=== PATIENT | male | born 1950 | race Caucasian/White ===

== ENCOUNTER → 2017-06-03 | Outpatient (CLI) | payer OTHER | LOC: FIMAGING 13:38 | PROVIDERS: ATTEND Physician Assistant Medical | DX: N20.0 Calculus of kidney (principal) ==

== ENCOUNTER → 2017-06-10 | Outpatient (CLI) | payer OTHER | LOC: CIMAGING 11:20 | PROVIDERS: ATTEND Physician Assistant Medical | DX: N20.0 Calculus of kidney (principal); K80.20 Calculus of gallbladder without cholecystitis without obstruction; K59.00 Constipation, unspecified | CPT/HCPCS: 72192-PO; 74150-PO ==

== ENCOUNTER → 2017-06-27 | Outpatient (CLI) | payer OTHER | LOC: FLAB 08:34 | PROVIDERS: ATTEND Physician Assistant Medical | DX: N20.0 Calculus of kidney (principal) ==

== ENCOUNTER 2017-08-03 08:44 | Day surgery (SDC) | payer OTHER ==
[~2017-08-03 08:44] MED LIST: ALTEPLASE 2 MG VIAL IVP PRN; FLUMAZENIL 0.5 MG/5 ML MDV IVP PRN; GLUCAGON HCL 1 MG VIAL IVP PRN; HEPARIN 10,000 UNIT/10 ML MDV (1,000 UNIT/ML) IVP PRN; MEPERIDINE 25 MG/ML SYR IVP PRN; MIDAZOLAM 2 MG/2 ML VIAL IVP PRN; NALOXONE HCL 0.4 MG/ML INJ IVP PRN; NS 1,000 ML IV SCH; PROTAMINE SULFATE 50 MG/5 ML VIAL IVP PRN; fentaNYL 100 MCG/2 ML INJ IVP PRN
[2017-08-03] MEDS ORDERED: DEXMEDETOMIDINE HCL 200 MCG in NS 50 ML IV ONE (09:00)
[2017-08-03] MEDS ORDERED: FLUMAZENIL 0.5 MG/5 ML MDV IVP ONE (09:02)
[2017-08-03] MEDS ORDERED: fentaNYL 100 MCG/2 ML INJ ONE ×2 (09:02→10:56)
[2017-08-03] MEDS ORDERED: MIDAZOLAM 2 MG/2 ML VIAL ONE ×2 (09:02→10:56)
[2017-08-03] MEDS ORDERED: NALOXONE HCL 0.4 MG/ML INJ ONE (09:02)
--- NOTE | 2017-08-03 09:36 | PDGENHP ---
History & Physical Chief Complaint: STAGHORN CALCULUS History of Present Illness: LARGE STAGHORN CALCULUS WITH OBSTRUCTION. Pertinent Past, Social, Family History: SINUS SURGERY, L FEMUR IMPLANTS, L ARM SCREW Relevant Physical Exam: ALERT, AWAKE, NO DISTRESS Cardiorespiratory Assessment: RRR, CTA
--- NOTE | 2017-08-03 09:38 | PDPROPOC ---
Sedation Plan of Care Sedation Plan of Care: vital signs stable, mental status noted, patient educated of risks, benefits, alternatives, patient can tolerate sedation ASA Classification: ASA 2 Planned drugs: fentanyl, midazolam Mallampati Score: Class 2 Mallampati Reference Image: Patient passed 3-3-2 rule?: Yes
[2017-08-03] MEDS ORDERED: IOPAMIDOL (ISOVUE-300) 100 ML BTL ONE (10:16)
[2017-08-03] MEDS ORDERED: LIDOCAINE 1% 300 MG/30 ML SDV ONE (10:16)
[2017-08-03] MEDS ORDERED: ONDANSETRON 4 MG/2 ML VIAL IVP PRN (11:26)
[2017-08-03] MEDS ORDERED: ACETAMINOPHEN 325 MG TAB PO PRN (11:26)
--- NOTE | 2017-08-03 11:29 | PDRADPN ---
Radiology Procedure Note Date of Procedure: 08/03/17 Radiologist: Yasemin Reis Anesthesia: IV Sedation Pre-op Diagnosis: RT RENAL STONE Post-op Diagnosis: SAME Indication: PRE-SURGICAL ACCESS Procedure: PERC NEPHROSTOMY PLACEMENT Finding(s): ACCESS TO UPPER POLE OBTAINED. Inf/Abcess present in the surg proc area at time of surgery?: No Complications: NONE
[2017-08-03] MEDS ORDERED: ACETAMINOPHEN 325 MG TAB ONE (11:46)
[2017-08-03 13:04] VITALS: BP 127/86
== END 2017-08-03 12:50 | disposition home or self-care (01) ==
LOC: FIMAGING 08:44
PROVIDERS: ATTEND Specialist
PROC: 0T9130Z Drainage of Left Kidney with Drainage Device, Percutaneous Approach (ICD-10-PCS; principal; 2017-08-03 11:30)
DX: N20.0 Calculus of kidney (principal)
CPT/HCPCS: 50432; 99152; C1729; C1769; J0696; J2250; J2310; J3010; Q9967

== ENCOUNTER 2017-08-04 05:24 | Observation (INO) | payer OTHER ==
[2017-08-04] MEDS ORDERED: LIDOCAINE 1% 2 ML INJ ID PRN (06:08)
[2017-08-04] MEDS ORDERED: LR 1,000 ML IV ONE (06:08)
[2017-08-04] MEDS ORDERED: levOFLOXACIN 500 MG/DEXTROSE 100 ML IV ONE (06:08)
--- NOTE | 2017-08-04 06:08 | PDANEPAE ---
ANE History of Present Illness 66 yo male with L Staghorn calculus for perc nephrolithotomy. 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 mild central apnea in past - Neurologic History Hx Cerebrovascular Accident: No Hx Seizures: No Hx Dementia: No Neurologic History Comment: chronic fatigue/ neurological condition- hasn't seen neurology in a few years - Endocrine History Hx Diabetes: Yes Hypothyroid: No Obesity: no Endocrine History Comment: type 2- on metformin - Renal History Hx Renal Disorders: Yes Renal History Comment: kidney stones. mild bph - Liver History Hx Hepatic Disorders: No Hepatic History Comment: Hepatitis A 's - Neurological & Psychiatric Hx Hx Neurological and Psychiatric Disorders: No - Cancer History Hx Cancer: No - Congenital Disorder History Hx Congenital Disorders: No Congenital History Comment: aphantasia - GI History Hx Gastrointestinal Disorders: Yes Gastrointestinal History Comment: hx of chronic constipation- used probiotic and hasn't had problem - Other Health History Other Health History: psoriasis / psoriatic arthritis. wears glasses. partial upper and lower - Chronic Pain History Chronic Pain: Yes (chronic muscle aches and joint pain) - Surgical History Prior Surgeries: stone removal with melouk. sinus surgery in the 70's. broken femur just below hip repaired. ANE Review of Systems Review of Systems: - Exercise capacity METS (RN): 4 METS ANE Patient History - Allergies Allergies/Adverse Reactions: methotrexate [Methotrexate] Allergy (Verified 07/29/17 14:14) Elevated liver enzymes modafinil [From Provigil] Allergy (Verified 07/29/17 14:14) Rapid HR, High BS, high B/P, body aches, headache - Home Medications Home Medications: metFORMIN HCL [Glucophage 500 mg (*)] 500 mg PO TIDMEAL 10/23/15 [Last Taken ] Acetaminophen [Tylenol 325mg (*)] 325 mg PO DAILY PRN 07/14/17 [Last Taken 07/28] Cholecalciferol Vit D3 [Vitamin D3 (*)] 1,000 units PO DAILY 07/14/17 [Last Taken 07/28/17] Fluticasone Nasal [Flonase Nasal [place]] 1 sprays NASAL DAILY 07/14/17 [Last Taken 08/02/17] Ibuprofen [Motrin (*)] 200 mg PO DAILY PRN 07/14/17 [Last Taken 07/28/17] Ixekizumab [Taltz Syringe] 80 mg SQ Q14D 07/14/17 [Last Taken 08/02/17] Multivitamins [Multivitamin (*)] 1 each PO DAILY 07/14/17 [Last Taken 07/28/17] Aspirin 81mg (*) PRN 07/29/17 [Last Taken 07/27/17] Naproxen Sodium [Aleve] 220 mg PO PRN 07/29/17 [Last Taken 07/27/17] - Smoking Hx Smoking Status: Former smoker - Family Anes Hx Family Hx Anesthesia Complications: none ANE Labs/Vital Signs - Vital Signs Height: 180.34 cm Weight: 74.843 kg ANE Physical Exam - ASA Status ASA Status: III ANE Anesthesia Plan Anesthesia Plan: general endotracheal anesthesia
[2017-08-04] MEDS ORDERED: MIDAZOLAM 2 MG/2 ML VIAL IVP ONE (07:00)
[2017-08-04] MEDS ORDERED: DEXAMETHASONE 4 MG/ML VIAL ONE (07:17)
[2017-08-04] MEDS ORDERED: MINERAL OIL 10 ML VIAL ONE (07:17)
[2017-08-04] MEDS ORDERED: ROCURONIUM 100 MG/10 ML VIAL ONE (07:17)
[2017-08-04] MEDS ORDERED: LIDOCAINE 2% 5 ML SDV ONE (07:17)
[2017-08-04] MEDS ORDERED: IOPAMIDOL (ISOVUE-300) 100 ML BTL ONE ×2 (07:18→10:01)
[2017-08-04] MEDS ORDERED: PROPOFOL/EMULSION 500 MG/50 ML BOTTLE IV ONE (07:18)
[2017-08-04] MEDS ORDERED: fentaNYL 100 MCG/2 ML INJ ONE ×2 (07:18→10:16)
[2017-08-04] MEDS ORDERED: DIAZEPAM 5 MG/ML 1 ML SYR ONE (07:25)
--- NOTE | 2017-08-04 07:31 | PDHPUP ---
History & Physical Update H&P update statement: This history and physical update is based on an assessment of the patient which was completed after admission or registration (within 24 hours), but prior to the surgery/procedure. H&P update: no change in patient's condition since H&P completed
[2017-08-04] MEDS ORDERED: epHEDrine SULFATE 10 MG/ML SYR ONE ×2 (07:59→09:26)
--- NOTE | 2017-08-04 09:10 | PDRADPN ---
Radiology Procedure Note Date of Procedure: 08/04/17 Radiologist: Moises Liriano Anesthesiologist: zavaleta Anesthesia: GET(General Endotracheal) Pre-op Diagnosis: nephrolithiasis Post-op Diagnosis: same Indication: fac access for PCNL Procedure: left PCN tract dilation Finding(s): 10F PCN exchanged for 30F Amplatz sheath over wire. good vis of stone for PCNL Inf/Abcess present in the surg proc area at time of surgery?: No EBL: Minimal Complications: none
[2017-08-04] MEDS ORDERED: IOPAMIDOL (ISOVUE-300) 150 ML BTL ONE (09:25)
[2017-08-04] MEDS ORDERED: KETOROLAC 30 MG/1 ML SDV ONE (09:41)
[2017-08-04] MEDS ORDERED: GLYCOPYRROLATE 0.2 MG/1 ML VIAL ONE (09:42)
[2017-08-04] MEDS ORDERED: NEOSTIGMINE METHYLSULFATE 10 MG/10 ML MDV ONE (09:42)
--- NOTE | 2017-08-04 10:05 | POSTOPPROG ---
Post Op Note Date of Operation: 08/04/17 Surgeon: Lee Lopez (# [id number]) Anesthesia: GET(General Endotracheal) Pre-op Diagnosis: > 2 cm volume left nephrolithiasis Post-op Diagnosis: > 2 cm volume left nephrolithiasis Procedure: Cysto, left RGP, ballon occlusion catheter, Left PCNL Findings: See op note Inf/Abcess present in the surg proc area at time of surgery?: No EBL: 50-100 (100 cc) Complications: None Drains: Nephrostomy (left 14 Fr.) Specimen(s): Left renal calculus fragments
[2017-08-04] MEDS ORDERED: HYDROmorphone HCL/NS 0.5 MG/ML SYR IVP PRN (10:08)
[2017-08-04] MEDS ORDERED: LIDOCAINE 2% JELLY 5 ML TUBE TP PRN (10:08)
[2017-08-04] MEDS ORDERED: ONDANSETRON 4 MG/2 ML VIAL IVP PRN ×2 (10:08→10:11)
[2017-08-04] MEDS ORDERED: PROMETHAZINE HCL 25 MG/ML INJ IVP PRN (10:08)
[2017-08-04] MEDS ORDERED: HYDROCODONE/APAP 5/325 TAB PO PRN (10:11)
[2017-08-04] MEDS ORDERED: NALOXONE HCL 0.4 MG/ML INJ IVP PRN (10:11)
[2017-08-04] MEDS ORDERED: ALBUTEROL 3 ML DEYVIAL IH PRN (10:11)
[2017-08-04] MEDS ORDERED: LR 500 ML IV PRN (10:11)
[2017-08-04] MEDS ORDERED: D50W 25 GM/50 ML SYR IVP PRN (10:11)
[2017-08-04] MEDS ORDERED: ACETAMINOPHEN 500 MG TAB PO PRN (10:11)
--- NOTE | 2017-08-04 10:13 | POSTANESTH ---
Post Anesthetic Evaluation Cardiovascular Status: Normal, Stable Respiratory Status: Normal, Stable Level of Consciousness/Mental Status: Can Participate in Eval, Mildly Sleepy, Arousable Pain Control: Adequate, Prn Tx Ordered Nausea/Vomiting Control: Adequate, Prn Tx Ordered Complications Possibly Related to Anesthesia: None Noted
[2017-08-04] MEDS ORDERED: D5W 1/2 NS 1,000 ML IV SCH (10:15)
[2017-08-04] MEDS: fentaNYL 100 MCG/2 ML INJ IVP PRN ×4 (10:19→11:08)
[2017-08-04] MEDS ORDERED: HYDROCODONE/APAP 5/325 TAB ONE (11:09)
--- NOTE | 2017-08-04 12:03 | GOP ---
[f rep st] OPERATIVE REPORT DATE OF OPERATION: 08/04/2017 SURGEON: Lee Lopez MD ANESTHESIA: General endotracheal. PREOPERATIVE DIAGNOSIS: Large-volume left nephrolithiasis, greater than 2 cm. POSTOPERATIVE DIAGNOSIS: Large-volume left nephrolithiasis, greater than 2 cm. PROCEDURE PERFORMED: 1. Cystourethroscopy, left retrograde pyelography. 2. Retrograde left ureteral balloon occlusion catheter placement. 3. Left percutaneous nephrostolithotomy (greater than 2 cm) with fluoroscopic guidance less than 1 hour. 4. Left nephrostomy tube placement. FINDINGS: Long narrow calculus within an upper pole infundibulum that was treated as mentioned in the body of the operative report. There was slightly more bleeding from the dilated nephrostomy tract than usual, but this did not hinder performance of the operation. SPECIMENS: Left renal calculus fragments. ESTIMATED BLOOD LOSS: Approximately 100 cc. INDICATIONS: This gentleman was found to have large-volume left nephrolithiasis that was deemed to be too large for extracorporeal shockwave lithotripsy nor retrograde ureterorenoscopy. Percutaneous nephrostolithotomy was recommended. The patient underwent left-sided nephrostomy tube placement in Interventional [facility]iology yesterday in preparation for today's surgery. The indications for the procedures as well as potential risks and complications were discussed with the patient preoperatively. He appeared to understand, his questions were answered, and he wished to proceed. Written informed surgical consent was thereafter obtained. DESCRIPTION OF PROCEDURE: The patient was brought to the operating room and administered general endotracheal anesthesia. He was carefully placed in the dorsal lithotomy position on the cystoscopic table. The genital area was sterilely prepped with Betadine scrub and paint, then draped in usual sterile fashion. A 22-Estonian sheath and 30-degree cystoscopic lens were then used to perform cystourethroscopy. The anterior urethra was unremarkable. The posterior urethra revealed mild BPH. Examination of the bladder revealed no areas of abnormal erythema, tumors, nor foreign bodies. Ureteral orifices were normal in regard to shape and position along the trigone. A 5-Estonian open-ended ureteral catheter was used to perform retrograde pyelography on the left side using C-arm fluoroscopy. This revealed no ureteral filling defects nor other abnormalities of the ureter. The renal pelvis was normal appearing. There appeared to be a filling defect in an upper pole infundibulum that was consistent with the calculus seen on preoperative imaging. The nephrostomy tube appeared to be located within the upper pole calyx associated with this long and narrow calculus in the upper pole infundibulum. I then advanced a superstiff Amplatz guidewire through the ureteral catheter and placed it so that the proximal tip was within the renal collecting system as noted fluoroscopically. The 5-Estonian open-ended ureteral catheter and cystoscope were then removed while keeping the guidewire in place. Under active fluoroscopic guidance, a balloon occlusion catheter was placed over the guidewire and positioned so that the balloon was just distal to the ureteropelvic junction. The balloon was inflated at this location. A 16- Estonian silastic Alvarado catheter was inserted alongside the balloon occlusion catheter. The Alvarado catheter was secured to the balloon occlusion catheter with Steri-Strips. This completed the cystoscopic portion of the procedure. The patient was then turned over into the prone position with all appropriate pressure points padded. The patient's left back and nephrostomy tube were then sterilely prepped and draped in standard fashion. Dr. Liriano from Interventional Radiology then proceeded to place a working nephroscopic sheath, along with 2 wires, 1 sitting within a large upper pole calyx and another that was descending down the ureter towards the bladder. I then utilized the rigid nephroscope to initially identify the calculus. It fragmented very easily. There was also noted to be more bleeding from the nephrostomy tract than I would generally experience with these procedures. Nonetheless, visualization was adequate enough that I was able to perform the operation successfully. An ultrasonic Lithotripter was used to fragment the calculus, followed by the use of rigid grasping forceps through the nephroscope to extract the fragments. Once no other calculus fragments could be seen through the rigid nephroscope, I then switched to a flexible cystoscope and performed flexible nephroscopy with it. I examined all the calices possible. The only calyx and infundibulum I was unable to access was another one in the upper pole that extended anteriorly. I was unable to successfully make the 180-degree turn with the flexible scope to examine this infundibulum and its calices. There might have been 1 small stone fragment remaining in this calyx that was seen on preoperative CT scan that I was unable to visualize nor treat. Nonetheless, I was able to visualize all of the remaining calices. No remaining calculi were seen. I used injection of contrast with periodic fluoroscopic guidance through the flexible cystoscope to help guide my navigation through the renal collecting system as well. At this point, I decided to terminate the procedure and place a nephrostomy tube. The nephroscopic sheath was also removed. Utilizing the guidewire that extended down the ureter and towards the bladder, I placed a 14-Estonian nephrostomy tube under fluoroscopic guidance. Due to the narrow nature of his renal pelvis, I had a hard time getting the nephrostomy tube to pigtail within the renal pelvis. The tip of the nephrostomy tube did appear to extend into a mid pole calyx. The remainder of the drainage aspect of the nephrostomy tube was within the renal pelvis. The nephrostomy tube was then secured at this location by locking the pigtail. The nephrostomy tube was flushed with saline and contrast. Confirmation of placement within the renal pelvis was confirmed fluoroscopically. The nephrostomy tube was then secured to the skin with a 2-0 silk suture. There was noted to be some bloody drainage around the nephrostomy tube, likely coming from the dilated tract where the nephroscopic sheath was previously residing. I placed manual pressure along the patient's left side immediately next to the nephrostomy tube and was able to nikki this bleeding to a very large extent. The nephrostomy tube then flushed fairly easily with return of blood-tinged urine. A dressing was then placed around the nephrostomy site, including a ski slope dressing, 4x4s, and Tegaderm. The nephrostomy tube was connected to bag drainage. The patient was then transferred back over into the supine position. He was awakened, extubated , transferred to his bed, then taken to the recovery room. He tolerated the procedure well overall. It should also be mentioned that before transfer to the recovery room and before awakening the patient, the ureteral balloon occlusion catheter was deflated and removed while keeping the Alvarado catheter in place. COMPLICATIONS: None. DISPOSITION: He was transferred to the recovery room in stable condition. He will be admitted overnight for postoperative care and monitoring. /[id number]/MODL MTDD
[2017-08-04] MEDS: metFORMIN HCL 500 MG TAB PO SCH ×2 (12:21→17:42)
[2017-08-04] MEDS: INSULIN REGULAR HUMAN 100 UNIT/ML UNIT SC SCH ×3 (12:21→21:21)
[2017-08-04] MEDS: HYDROCODONE/APAP 10/325 TAB PO PRN ×2 (15:19→18:16)
[2017-08-04] MEDS: NS 1,000 ML IV SCH (17:17)
[2017-08-05] MEDS: NS 1,000 ML IV SCH (01:40)
[2017-08-05] MEDS: HYDROCODONE/APAP 10/325 TAB PO PRN (05:20)
[2017-08-05] MEDS: INSULIN REGULAR HUMAN 100 UNIT/ML UNIT SC SCH ×2 (07:45→11:30)
[2017-08-05 08:42] VITALS: BP 142/67
[2017-08-05] MEDS: metFORMIN HCL 500 MG TAB PO SCH ×2 (08:48→11:30)
[2017-08-05] MEDS ORDERED: FLUTICASONE NASAL 120 SPRAYS/16 GM MDI EACHNARE SCH (09:00)
--- NOTE | 2017-08-05 10:50 | ASMTCMCOM ---
CM Note CM Note Notes: Chart reviewed. 66 year old male s/p l kidney stone removal with nephrostomy tube. No needs identified at this time. Cm available should other needs arise. Plan: home independently Date Signed: 08/05/2017 10:50 AM Electronically Signed By:Karin Agrawal RN
--- NOTE | 2017-08-05 13:21 | SOAPPROG ---
SOAP Progress Note Assessment/Plan: Assessment: POD 1 s/p Left PCNL - doing well. Plan: D/C w/ nephrostomy tube with removal next week thru IR. (d/c summ. # [id number]) Subjective: No complaints currently. Wants to go home. Objective: Vital Signs Temp Pulse Resp BP Pulse Ox 37.2 C 86 17 142/67 H 94 08/05/17 08:40 08/05/17 08:40 08/05/17 08:40 08/05/17 08:40 08/05/17 08:40 Laboratory Results 08/05/17 04:16 08/05/17 04:16 08/04/17 08/05/17 08/06/17 05:59 05:59 05:59 Intake Total 1900 2180 Output Total 1890 2470 Balance 10 -290 Physical Exam - Physical Exam General Appearance: WD/WN, alert, no apparent distress Abdomen: non-tender, soft Back: Other (nephrostomy tube w/ slightly blood-tinged urine, no clots. Dressing intact) Skin: warm/dry Extremities: normal inspection Neuro/Psych: alert, normal mood/affect, oriented x 3 ICD10 Worksheet Patient Problems: Problems Problem Status Onset Kidney stone on right side Acute
--- NOTE | 2017-08-05 14:24 | GDS ---
[f rep st] DISCHARGE SUMMARY ADMITTING DIAGNOSIS: Large volume left nephrolithiasis. DISCHARGE DIAGNOSIS: Large volume left nephrolithiasis. PROCEDURES: Left percutaneous nephrostolithotomy on 08/04/2017. HOSPITAL COURSE: Refer to the operative report for details regarding the procedure. Postoperatively, the patient did well. He was ready for discharge on postoperative day 1 with indwel ling nephrostomy tube. Vital signs were stable, and he was afebrile. Postoperative laboratory work did reveal some mild decrease in hemoglobin and hematocrit due to perio perative blood loss and hydration. He exhibited no signs or symptoms of ongoing bleeding. Vital sig ns were stable, and he was afebrile. The patient was tolerating a regular diet, ambulating, and void ing without difficulty by postoperative day 1. He was ready for discharge on postoperative day 1. DISCHARGE MEDICATIONS: He is to continue with his regular medications and has been given an Rx for N orco 5 mg p.r.n. pain. DISCHARGE INSTRUCTIONS: Activity restriction instructions and nephrostomy tube care instructions hav e also been provided. FOLLOWUP: Arrangements were being made for the patient to follow up in Interventional Radiology [facility] next week for a nephrostogram and probable nephrostomy tube removal at that time. He will also return to my office in approximately 1 month with a noncontrast CT scan done at that arm[facility] e to assess for residual nephrolithiasis and hydronephrosis. /[id number]/MODL
[2017-08-16] MEDS ORDERED: IXEKIZUMAB 80 MG SQ SCH (10:15)
== END 2017-08-05 14:50 | disposition home or self-care (01) ==
LOC: F1N 05:24
PROVIDERS: ADMIT Specialist; ATTEND Specialist
PROC: BT1FZZZ Fluoroscopy of Left Kidney, Ureter and Bladder (ICD-10-PCS; principal; 2017-08-04 07:15)
PROC: 0TJ58ZZ Inspection of Kidney, Via Natural or Artificial Opening Endoscopic (ICD-10-PCS; principal; 2017-08-04 07:15)
PROC: 0TC14ZZ Extirpation of Matter from Left Kidney, Percutaneous Endoscopic Approach (ICD-10-PCS; principal; 2017-08-04 07:15)
DX: N20.0 Calculus of kidney (principal); R31.0 Gross hematuria; E11.9 Type 2 diabetes mellitus without complications; F10.20 Alcohol dependence, uncomplicated; F12.20 Cannabis dependence, uncomplicated; Z87.891 Personal history of nicotine dependence
CPT/HCPCS: 50081; 52351; 74485; 88300; C1725; C1769; C1894; G0378; J1100; J1644; J1815; J1885; J1956; J2250; J2704; J3010; J3360; Q9967; 82365-90

== ENCOUNTER → 2017-08-08 | Day surgery (SDC) | payer OTHER ==
[~2017-08-08] MED LIST changes: -ALTEPLASE 2 MG VIAL IVP PRN; -FLUMAZENIL 0.5 MG/5 ML MDV IVP PRN; -GLUCAGON HCL 1 MG VIAL IVP PRN; -HEPARIN 10,000 UNIT/10 ML MDV (1,000 UNIT/ML) IVP PRN; +IOPAMIDOL (ISOVUE 370) 100 ML BTL IV ONE; +LIDOCAINE 1% 300 MG/30 ML SDV ONE; -MEPERIDINE 25 MG/ML SYR IVP PRN; -MIDAZOLAM 2 MG/2 ML VIAL IVP PRN; -NALOXONE HCL 0.4 MG/ML INJ IVP PRN; -NS 1,000 ML IV SCH; -PROTAMINE SULFATE 50 MG/5 ML VIAL IVP PRN; -fentaNYL 100 MCG/2 ML INJ IVP PRN
== END | disposition home or self-care (01) ==
LOC: FIMAGING 09:58
PROVIDERS: ATTEND Specialist
PROC: 0TP5X0Z Removal of Drainage Device from Kidney, External Approach (ICD-10-PCS; principal; 2017-08-08)
PROC: BT1FYZZ Fluoroscopy of Left Kidney, Ureter and Bladder using Other Contrast (ICD-10-PCS; principal; 2017-08-08)
DX: Z43.6 Encounter for attention to other artificial openings of urinary tract (principal); Z87.442 Personal history of urinary calculi
CPT/HCPCS: Q9967

== ENCOUNTER → 2017-09-02 | Outpatient (CLI) | payer OTHER | LOC: FIMAGING 14:02 | PROVIDERS: ATTEND Specialist | DX: Z09 Encounter for follow-up examination after completed treatment for conditions other than malignant neoplasm (principal); N20.0 Calculus of kidney ==

== ENCOUNTER → 2018-06-29 | Outpatient (CLI) | payer OTHER | LOC: CIMAGING 15:47 | PROVIDERS: ATTEND Internal Medicine | DX: M25.552 Pain in left hip (principal); M79.605 Pain in left leg; Z98.1 Arthrodesis status | CPT/HCPCS: 73502-PO ==